=== PATIENT | female | born 1985 | race Caucasian/White ===

== ENCOUNTER 2020-04-16 18:05 | Emergency (ER) | payer MEDICAID ==
[~2020-04-16] VITALS: Ht 160 cm; Wt 76.0 kg
[2020-04-16 18:12] VITALS: BP 156/95
[2020-04-16] MEDS ORDERED: ALBUTEROL 6.7GM HFA INHALER ORI ONE (19:15)
== END 2020-04-16 20:04 | disposition home or self-care (01) ==
LOC: ER 18:36
DX: J45.901 Unspecified asthma with (acute) exacerbation (principal)
CPT/HCPCS: 81025; 94640; 99283